=== PATIENT | female | born 1985 | race Hispanic/Latino ===

== ENCOUNTER 2018-08-22 11:52 | Outpatient (CLI) | payer OTHER ==
--- NOTE | 2018-08-22 14:43 | RAD ---
LEFT FOOT THREE VIEWS: INDICATIONS: Dropped a can on the left foot yesterday, with bruising of the 3rd and 2nd metatarsal heads. COMPARISON: None. FINDINGS: There is a mildly displaced transversely oriented fracture involving the 4th digit proximal phalangea l neck without evidence of intraarticular extension. The fracture is displaced medially and slightly dorsally one cortex width, and no additional acute fracture is evident. Lisfranc alignment is prese rved. There is soft tissue swelling surrounding the forefoot. IMPRESSION: Mildly displaced left 4th digit proximal phalangeal neck fracture. POS: [facility]
== END 2018-08-22 11:53 | disposition home or self-care (01) ==
LOC: BICRAD 11:52
PROVIDERS: ATTEND Nurse Practitioner Family
DX: S99.922A Unspecified injury of left foot, initial encounter (principal); S92.512A Displaced fracture of proximal phalanx of left lesser toe(s), initial encounter for closed fracture